=== PATIENT | female | born 1975 | race Caucasian/White ===

== ENCOUNTER → 2017-04-20 | Day surgery (SDC) | payer OTHER ==
[~2017-04-20] VITALS: Ht 167.6 cm; Wt 79.8 kg
[~2017-04-20] MED LIST: COLACE 100MG C100 MG PO; IBUPROFEN600 MG PO; NORCO 5-325 TA1 EACH PO; PRENATAL TABLE1 EAC1 PO; PROVENTIL HFA 61 INH INH
[2017-04-20 11:20] LABS: HEMOGLOBIN 13.1 gm/dl (12.3-15.3); RED BLOOD COUNT 4.44 M/UL (4.00-5.10)
== END | disposition home or self-care (01) ==
LOC: OR 07:45
PROVIDERS: Obstetrics & Gynecology
PROC: 10D17ZZ Extraction of Products of Conception, Retained, Via Natural or Artificial Opening (ICD-10-PCS; principal; 2017-04-20 12:00)
DX: O02.1 Missed abortion (principal); J45.909 Unspecified asthma, uncomplicated; Z88.2 Allergy status to sulfonamides; Z87.891 Personal history of nicotine dependence; Z79.899 Other long term (current) drug therapy; Z90.79 Acquired absence of other genital organ(s)
CPT/HCPCS: 36415; 85025; 86850; 86900; 86901; J1885; J2250; J2405; J2790; J2795; J7120